=== PATIENT | female | born 1955 | race Caucasian/White ===

== ENCOUNTER → 2016-07-06 | Outpatient (CLI) | payer OTHER ==
[~2016-07-06] VITALS: Ht 167.6 cm; Wt 60.9 kg
[~2016-07-06] MED LIST: ACCUNEB SO1.25 MG/1 INH; ACETAMINOPHEN-1 EAC1; ACETAMINOPHEN-1 EAC1 PO; ACIPHEX PO; AMRIX15 MG PO; APAP W/CODEINE1 TA2 PO; APAP500 PO; AUGMENTIN 875875 MG PO; EFFEXOR75 MG PO; ESTRACE1 MG PO; FLEXERIL PO; KEFLEX500 MG PO; NORFLEX100 MG PO; PERCOCET 5-3251 EACH PO; PROMETRIUM200 MG PO; TYLENOL EXTRA500 MG PO; VALIUM5 MG PO; XANAX 0.25 MG0.25 MG PO
--- NOTE | ~2016-07-06 | HPC ---
[facility] [address] [place] [address] PAIN MANAGEMENT CONSULTATION Name: KATIE RAMIREZ Room #: REG [facility]#: [id number] Admission: 07/06/16 Attend Phys: Danny Diamond MD Discharge: Date of : 59 Report #: [id number] THIS REPORT FOR: //name// CC: Bryon Diamond DATE OF SERVICE: 07/06/2016 Followup visit for post-laminectomy radicular pain into the right leg. The patient returns to pain clinic today with pain following the L5-S1 distribution, pain as a 7-10/10 worse at night. Also, bothers her when she is driving, overactive. It radiates all the way down to the foot. She has had a previous laminectomy and she has also done very well with the previous transforaminal epidural injections. She is here today for an injection, has been some time since her last injection. She reports that she has recently been lost her job. She was on her feet a lot and so it will be helpful that she will be able to take a little bit of time for recuperation. We have discussed the importance of remaining active and exercises. She is slender and fit, very muscular for her size. She is very careful about body mechanics. MEDICATIONS: Acetaminophen, albuterol, progesterone, and estradiol. ALLERGIES: ASPIRIN. PHYSICAL EXAMINATION: BMI is 21.7. She is very strong. Blood pressure 100/69, heart rate 70. She is able to move from sitting to standing position, walks without antalgic features. She has marked right-sided straight leg raising pain which follows an L5-S1 distribution. She has across over pain from the left. IMPRESSION: Lumbar radiculopathy, post-laminectomy syndrome. RECOMMENDATIONS: L5-S1 transforaminal epidural injection. Procedure having had such good response with good duration is something we have done on several occasions. She understands risks and benefits, she is anxious to proceed. She was taken to the fluoroscopic suite, placed prone, skin prepped with ChloraPrep. Skin anesthetized over the L5-S1 neural foramen. Using triplanar fluoroscopic views, needle was advanced into the neural foramen without difficulty. I injected 1 mL of Omnipaque and demonstrating excellent epidural spread followed by 3 mL of 0.5% lidocaine mixed with 80 mg triamcinolone. She [address] [address] PAIN MANAGEMENT CONSULTATION Name: TIAN RAMIREZDAYTON Mcmullen Room #: REG KANDIS Deleon#: [id number] Admission: 07/06/16 Attend Phys: Danny Diamond MD Discharge: Date of : 59 Report #: [id number] tolerated the procedure well and was observed for 45 minutes and discharged. Followup visit planned on an as needed basis. No medications were ordered for the patient on this visit. By: 1107 20 Danny Diamond MD /nt
[2016-07-06 09:58] VITALS: BP 100/69
== END | disposition home or self-care (01) ==
LOC: PAIN 07:12
DX: M54.16 Radiculopathy, lumbar region (principal); M96.1 Postlaminectomy syndrome, not elsewhere classified

== ENCOUNTER → 2016-11-24 | Outpatient (CLI) | payer OTHER ==
[~2016-11-24] VITALS: Ht 167.6 cm; Wt 60.9 kg
--- NOTE | ~2016-11-24 | HPC ---
[facility] [address] [place] [address] PAIN MANAGEMENT CONSULTATION Name: KATIE RAMIREZ Room #: REG [facility] [id number] Admission: 11/24/16 Attend Phys: Kwasi Bunch DO Discharge: Date of : 59 Report #: [id number] THIS REPORT FOR: //name// CC: Bryon Bunch PROCEDURE: Transforaminal epidural injection under fluoroscopy. INDICATION: Symptomatic lumbar radiculopathy status post decompressive laminectomy, lumbar radiculopathy. She has had good relief with p.r.n. right L5-S1 transforaminal epidural injections. Last injection was on 07/06/2016. She returns to pain clinic today noting that injection had afforded specifically 80% relief for several months. Currently, pain is in the back, right leg to foot. She has episodic pain lancinating down the leg with chronic pain exacerbated with standing or walking. She has paresthesia and weakness. She denies bowel or bladder continence changes or saddle anesthesia. She rates the pain as 7-10 on a VAS. PHYSICAL EXAMINATION: Shows a 61-year-old female, BMI is 21.7 kilograms per meter squared, blood pressure 120/67, pulse 82, respirations 14. Rises from chair using armrest nominally antalgic gait, positive straight leg raise on the right at 30 degrees. Patellar reflexes are symmetric. Achilles reflex is diminished on the right. Right plantar flexion, lower extremity flexion, hip flexion strength is all diminished, perhaps 3/5 versus 4/5 on the left. ASSESSMENT: Symptomatic lumbar radiculopathy status post decompressive laminectomy, classic right L5 radicular pain pattern. RECOMMENDATION: Repeat L5-S1 transforaminal epidural injection (right today). Follow up with Dr. Diamond as needed. PROCEDURE: Transforaminal lumbar epidural injection under fluoroscopy. PROCEDURE NOTE: After both written and informed consent was obtained including risk of spinal cord damage, infection, increased pain and paralysis, the patient agreed to proceed. The patient was taken to the fluoroscopy suite, placed in a prone position with appropriate abdominal bolstering. After sterile prep with ChloraPrep and sterile drape, a skin wheal with 1% Xylocaine was raised. A 22 gauge 4-1/2 inch epidural Tuohy needle was inserted. From an oblique approach into the posterior-superior aspect of the right L5-S1 neural foramen with continuous pressure on the glass syringe plunger for loss of resistance. Glass syringe was filled with 2 cc of 0.1 Xylocaine. The glass loss of resistance syringe was removed. A low volume extension tubing was connected, negative aspiration was accomplished for cerebrospinal fluid or blood. 1 mL of Omnipaque was injected which showed spread both within the epidural space and laterally along the nerve root. This was followed with 80 mg of triamcinolone plus 1 mL of 1.5% preservative-free Xylocaine. Needle was partially withdrawn, 0.5 mL of [facility] [address] [place] [address] PAIN MANAGEMENT CONSULTATION Name: KATIE RAMIREZ Room #: REG [facility] Adrienne#: [id number] Admission: 11/24/16 Attend Phys: Kwasi Bunch DO Discharge: Date of : 59 Report #: [id number] Xylocaine was injected to clear the needle and the needle was removed. The area was cleansed, band-aid was applied. The patient was allowed to ambulate to the recovery room, discharged in good and stable condition. <ELECTRONICALLY SIGNED> By: Kwasi Bunch DO 11/27/16 1014 1548 1348 Kwasi Bunch DO /nt
[2016-11-24 11:08] VITALS: BP 120/67
== END | disposition home or self-care (01) ==
LOC: PAIN 07:18
DX: M54.16 Radiculopathy, lumbar region (principal); G89.29 Other chronic pain; Z98.890 Other specified postprocedural states; Z88.6 Allergy status to analgesic agent

== ENCOUNTER → 2017-07-16 | Outpatient (CLI) | payer OTHER ==
[~2017-07-16] VITALS: Ht 167.6 cm; Wt 62.9 kg
--- NOTE | ~2017-07-16 | HPC ---
[facility] [place] [address] PAIN MANAGEMENT CONSULTATION Name: KATIE RAMIREZ Room #: REG [facility].#: [id number] Admission: 07/16/17 Attend Phys: Danny Diamond MD Discharge: Date of : 59 Report #: [id number] THIS REPORT FOR: //name// CC: Bryon Diamond DATE OF SERVICE: 07/16/2017 Followup visit for post-laminectomy syndrome with radiculopathy. The patient made an appointment today for a transforaminal injection. She gets injections periodically for pain when it is severe. Her last injection was in 10/2016. She reports 6 months of pain relief nearly 100% before the pain began to return once again in May. She would like another injection. She scores her pain today as a 7. It begins in her back and radiates into her right leg along the L5 and S1 distribution. I have injected her at that level with good response. Past social history of importance is that her mother 3 weeks ago. I cared for her mother for nearly 25 years for chronic back pain as well. I had a long discussion with her mother helping transition her to hospice. I was unaware of her mother's passing and we discussed her transition. She is grieving appropriately. Her mother suffered towards the end and she is grateful that she is no longer in pain. PHYSICAL EXAMINATION: On physical exam, she is attractive 62-year-old pleasant, alert and oriented without signs of anxiety, depression or overmedication. Her blood pressure is 142/80 and heart rate 76. Her BMI is 22.4. She is able to move independently from sitting to standing position. She walks without antalgic features to her gait. She has pain with both flexion and extension of the lumbar spine and tenderness across her scar. Straight leg raising on the right reproduces pain down the posterior lateral aspect of her leg all the way to the foot consistent with radiculopathy. IMPRESSION: Low back pain with radiculopathy, post-laminectomy syndrome. PROCEDURE: L5-S1 transforaminal epidural injection under fluoroscopic guidance. DESCRIPTION OF PROCEDURE: She was taken to the fluoroscopic suite where she was placed prone, skin prepped with ChloraPrep. Skin anesthetized over L5-S1 neural foramen. A 22-gauge Tuohy epidural needle was advanced in the first attempt into the neural foramen. An excellent epidurogram was achieved with 0.5 mL of Omnipaque and then I injected 3 mL of 0.5% lidocaine mixed with 80 mg of triamcinolone. She tolerated the procedure well. Pain score was 0 at discharge [address] [address] PAIN MANAGEMENT CONSULTATION Name: KATIE RAMIREZ Room #: REG [facility].#: [id number] Admission: 07/16/17 Attend Phys: Danny Diamond MD Discharge: Date of : 59 Report #: [id number] and a followup visit planned only as needed. No medications were provided today. By: 1602 2221 Danny Diamond MD /nt
[2017-07-16 12:39] VITALS: BP 142/80
== END | disposition home or self-care (01) ==
LOC: PAIN 07:00
DX: M54.16 Radiculopathy, lumbar region (principal); M96.1 Postlaminectomy syndrome, not elsewhere classified; G89.29 Other chronic pain; Z88.8 Allergy status to other drugs, medicaments and biological substances; Z79.899 Other long term (current) drug therapy

== ENCOUNTER → 2018-01-25 | Outpatient (CLI) | payer OTHER | LOC: RAD 12:24 | DX: Z12.31 Encounter for screening mammogram for malignant neoplasm of breast (principal) ==

== ENCOUNTER → 2018-04-29 | Outpatient (CLI) | payer OTHER ==
[~2018-04-29] VITALS: Ht 167.6 cm; Wt 67.0 kg
--- NOTE | ~2018-04-29 | HPC ---
[facility] [place] [address] PAIN MANAGEMENT CONSULTATION Name: KATIE RAMIREZ Room #: REG [facility].#: [id number] Admission: 04/29/18 ������������������ Attend Phys: Danny Diamond MD Discharge: ������������������ Date of : 59 Report #: [id number] THIS REPORT FOR: //name// CC: Bryon Diamond DATE OF SERVICE: 04/29/2018 Followup visit for post laminectomy syndrome with radiculopathy. The patient returns to pain clinic today requesting an epidural injection. I provided transforaminal injections for her at infrequent intervals. She had 1 injection in 2018 and 2 injections in 2017. These have always provided good relief for the pain that radiates down into her leg. She is now having another episode, which she scores as a 7-9/10. The pain follows an L5-S1 distribution. Her previous surgery was performed years ago and she has a small incision there. Scar tissue or impingement has occurred resulting in a pain that is classic for radicular symptoms into the L5-S1 region. I reviewed her most recent MRI, which is many years ago. At this time, given her good response, I do not think it is worthwhile to repeat another x-ray. Medications for pain are taken, but she uses only Tylenol No. 3 infrequently, I have agreed to renew that for her. She does not even take it daily and using it only for severe pain. She continues to work multimedia journalist. PHYSICAL EXAMINATION: She is a pleasant, outgoing 63-year-old. Blood pressure 108/73, heart rate 85, respirations 14, BMI is 23.9. She scores her pain as a 7-9/10. She moves easily from sitting to standing position, but her gait is mildly antalgic. There is a positive straight leg raising discomfort on the right that follows the back of her leg down to the foot and is associated with some mild numbness to light touch. IMPRESSION: Chronic low back pain with radiculopathy, post laminectomy syndrome. Pain is L5 distribution on the right. PROCEDURE: L5-S1 transforaminal epidural injection under fluoroscopic guidance. DESCRIPTION OF PROCEDURE: She was taken to fluoroscopic suite for treatment, placed prone, skin prepped with ChloraPrep. Skin anesthetized over the right L5-S1 neural foramen. Using triplanar fluoroscopic views, I advanced the needle easily into the epidural space and 1 mL of Omnipaque demonstrated an excellent epidurogram as well as outlining the L5 nerve root was followed by 3 mL of 0.5% lidocaine mixed with 80 mg of triamcinolone. She tolerated the procedure well, [address] [address] PAIN MANAGEMENT CONSULTATION Name: KATIE RAMIREZ Room #: REG [facility] TabbyRoly#: [id number] Admission: 04/29/18 ������������������ Attend Phys: Danny Diamond MD Discharge: ������������������ Date of : 59 Report #: [id number] was observed for 45 minutes and discharged. Followup visit planned in the pain clinic on an as needed basis. I called in Tylenol No. 3, #30 tablets. ��������������������������������������������� ���������������������������������������� By: ��������������������������������������������� 1455 0554 Danny Diamond MD /nt
[2018-04-29 10:36] VITALS: BP 108/73
--- NOTE | 2018-04-29 10:57 | NUR ---
Pain Clinic Assessment: 1. History of Osteoarthritis: no History of Rheumatoid Arthritis: no 2. Height: 5 ft. 6 in. 167.6 cm. Weight: 147.8 lb. oz. 67.042 kg. Patient's BMI: 23.9 3. Vital Signs: BP: 108/73 Pulse: 85 Resp: 14 Temp: 02 Sat: 97 ECG Mon: 4. Pain Intensity: 7-9 ANG 5. Fall Risk: Dizziness: N Needs help standing or walking: N Fallen in the last 3 months: N Fall risk comments: 6. Patient on Blood Thinner: None 7. History of Hypertension: N 8. Opioid Therapy greater than 6 weeks: N Opiate Contract Signed: 08/18/15 9. Risk Assessment Tool Provided: 8-high risk 10. Functional Assessment Tool: 11. Recreational Drug Use: Never Drug Type: Tobacco Use: Never Smoker Tobacco Type: Amount or Packs/day: How Many Years: Alcohol Use: Yes Frequency: Quant:
== END | disposition home or self-care (01) ==
LOC: PAIN 07:08
DX: M54.16 Radiculopathy, lumbar region (principal); M96.1 Postlaminectomy syndrome, not elsewhere classified; G89.29 Other chronic pain; Z88.8 Allergy status to other drugs, medicaments and biological substances; Z79.899 Other long term (current) drug therapy; Z98.890 Other specified postprocedural states

== ENCOUNTER → 2018-12-02 | Outpatient (CLI) | payer OTHER ==
[~2018-12-02] VITALS: Ht 167.6 cm; Wt 67.1 kg
[2018-12-02 13:40] VITALS: BP 119/70
--- NOTE | 2018-12-02 13:48 | NUR ---
Pain Clinic Assessment: 1. History of Osteoarthritis: no History of Rheumatoid Arthritis: no 2. Height: 5 ft. 6 in. 167.6 cm. Weight: 148.0 lb. oz. 67.132 kg. Patient's BMI: 23.9 3. Vital Signs: BP: 119/70 Pulse: 79 Resp: 14 Temp: 02 Sat: 99 ECG Mon: 4. Pain Intensity: 7-NOW 5. Fall Risk: Dizziness: N Needs help standing or walking: N Fallen in the last 3 months: N Fall risk comments: 6. Patient on Blood Thinner: None 7. History of Hypertension: N 8. Opioid Therapy greater than 6 weeks: N Opiate Contract Signed: 08/18/15 9. Risk Assessment Tool Provided: 8-high risk 10. Functional Assessment Tool: 11. Recreational Drug Use: Never Drug Type: Tobacco Use: Never Smoker Tobacco Type: Amount or Packs/day: How Many Years: Alcohol Use: Yes Frequency: Quant:
--- NOTE | 2018-12-05 16:52 | HPC ---
[facility] [place] [address] PAIN MANAGEMENT CONSULTATION Name: KATIE RAMIREZ Room #: REG [facility].#: [id number] Admission: 12/02/18 Attend Phys: Danny Diamond MD Discharge: Date of : 59 Report #: [id number] THIS REPORT FOR: //name// CC: Bryon Diamond DATE OF SERVICE: 12/02/2018 Followup visit for low back pain with radiculopathy. The patient is here today with recurrence of her radicular symptoms. She has had a previous laminectomy, and she has responded nicely to transforaminal epidural injections. For the first time, however, her pain is on the left. It has always been on the right in the past. It does have almost exact mirror image following an L5 distribution. I have suggested that we treated as we have so successfully with the transforaminal injection using the L5-S1 level on the left rather than the right. There have been no other significant changes in her health history. She denies heart, lung, kidney or liver problems. No chronic conditions. 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 She says the client tells her much politer and nicer and she does not have to deal with drunks! PHYSICAL EXAMINATION: GENERAL: She is a pleasant and attractive 63-year-old. VITAL SIGNS: Blood pressure 119/70, heart rate 79, respirations 14. Her BMI is 23.9. She moves easily from an independent sitting position, standing, walks without antalgic features. Examination of the spine reveals mild tenderness. There is a small scar from her previous laminectomy. Straight leg raising reproduces pain on the left when the left leg is raised on the right. Positive Lasegue's sign. This is pathognomonic radiculopathy. IMPRESSION: 1. Lumbar radiculopathy, L5, on the left. 2. Post-laminectomy syndrome. PROCEDURE: Left L5-S1 transforaminal epidural injection under fluoroscopic guidance. DESCRIPTION OF PROCEDURE: She was taken to fluoroscopic suite, placed prone, skin prepped with ChloraPrep. Skin anesthetized over the L5-S1 neural foramen. Using triplanar fluoroscopic views, I advanced the needle in the neural foramen. There was no blood nor CSF aspirated. I injected one-quarter milliliters of Omnipaque to demonstrate an excellent epidurogram, was then followed by 3 mL of [facility] [address] [place] [address] PAIN MANAGEMENT CONSULTATION Name: KATIE RAMIREZ Room #: REG [facility]#: [id number] Admission: 12/02/18 Attend Phys: Danny Diamond MD Discharge: Date of : 59 Report #: [id number] 0.5% lidocaine mixed with 80 mg of triamcinolone. She tolerated the procedure well and was observed for 45 minutes and discharged. Followup visit planned as needed. <ELECTRONICALLY SIGNED> By: Danny Diamond MD 12/05/18 1652 [id number] 1306 Danny Diamond MD /nt
== END | disposition home or self-care (01) ==
LOC: PAIN 06:37
DX: M54.16 Radiculopathy, lumbar region (principal); M96.1 Postlaminectomy syndrome, not elsewhere classified; G89.29 Other chronic pain; Z88.8 Allergy status to other drugs, medicaments and biological substances; Z79.899 Other long term (current) drug therapy; Z98.890 Other specified postprocedural states

== ENCOUNTER → 2019-01-30 | Outpatient (CLI) | payer OTHER | LOC: RAD 07:58 | DX: Z12.31 Encounter for screening mammogram for malignant neoplasm of breast (principal) ==

== ENCOUNTER → 2019-02-07 | Outpatient (CLI) | payer OTHER | LOC: ULTRA 09:39 | DX: N63.22 Unspecified lump in the left breast, upper inner quadrant (principal) ==

== ENCOUNTER → 2019-06-19 | Outpatient (CLI) | payer OTHER ==
[~2019-06-19] VITALS: Ht 167.6 cm; Wt 70.6 kg
[~2019-06-19] MED LIST changes: +TYLENOL WITH CO1 TA1 PO
[2019-06-19 10:57] VITALS: BP 128/74
--- NOTE | 2019-06-19 11:13 | NUR ---
Pain Clinic Assessment: 1. History of Osteoarthritis: Not Applicable History of Rheumatoid Arthritis: Not Applicable 2. Height: 5 ft. 6 in. 167.6 cm. Weight: 155.6 lb. oz. 70.580 kg. Patient's BMI: 25.1 3. Vital Signs: BP: 128/74 Pulse: 94 Resp: 16 Temp: 02 Sat: 98 ECG Mon: 4. Pain Intensity: 9 5. Fall Risk: Dizziness: N Needs help standing or walking: N Fallen in the last 3 months: N Fall risk comments: 6. Patient on Blood Thinner: None 7. History of Hypertension: N 8. Opioid Therapy greater than 6 weeks: N Opiate Contract Signed: 08/18/15 9. Risk Assessment Tool Provided: LOW RISK 0/3 10. Functional Assessment Tool: / 11. Recreational Drug Use: Never Drug Type: Tobacco Use: Never Smoker Tobacco Type: Amount or Packs/day: How Many Years: Alcohol Use: No Frequency: Quant:
--- NOTE | 2019-06-23 08:53 | HPC ---
[facility] [address] [place] [address] PAIN MANAGEMENT CONSULTATION Name: KATIE RAMIREZ Room #: REG [facility].#: [id number] Admission: 06/19/19 Attend Phys: Megan Acosta Discharge: Date of : 59 Report #: [id number] THIS REPORT FOR: cc: Bryon Dinh MD Mertz, Jim I, MD Hocker,Megan KILGORE ~ CC: Danny Diamond MD DATE OF SERVICE: 06/19/2019 CHIEF COMPLAINT: Low back pain with radiculopathy. HISTORY OF PRESENT ILLNESS: This is a very pleasant 64-year-old female who returns to the pain clinic today for refill of her Tylenol No. 3 that she takes very sparingly for ongoing low back pain. Today, she reports that she was mowing her lawn last week and does suffer from seasonal allergies when she returned to her house. She sneezed very abruptly that caused her back to start hurting and has been bothersome ever since radiating from her low back down her left leg. She does report that the previous injection of transforaminal epidural steroid injection that Dr. Danny Diamond performed in November had been helping her at 100%. She had not been using any of her Tylenol No. 3. When she went to refill it after this episode of increased pain, she found that it has , so today she is here requesting refills of that medication. Today, her pain score is 9/10 since this flareup. She reports sitting and lying down and picking any heavy objects up has been very painful. She has been having difficulty working very part-time at [employer]. She feels heat has been beneficial and is hopeful that the Tylenol No. 3 will be helpful as well. ALLERGIES: ASPIRIN. CURRENT LIST OF MEDICATIONS: Tylenol No. 3 very p.r.n., Tylenol Extra Strength p.r.n., progesterone and Estrace. PATIENT'S PQRS: 1. She denies any rheumatoid or osteoarthritis. 2. Height is 5 feet 6 inches, weight is 155, BMI is 21. Vital signs; 128/74, pulse is 94, respirations 16, oxygen sat is 98. 3. Pain score is 9/10. 4. Denies dizziness, does not need help walking or standing, has not fallen in the last 3 months. 5. The patient is not on any blood thinner or medicine for hypertension. She is not on ongoing opioid therapy. 6. Risk assessment tool is low. Functional assessment 66/70. 7. Recreational drug use, she denies. She is not a smoker and does not drink [address] [address] PAIN MANAGEMENT CONSULTATION Name: KATIE RAMIREZ Room #: REG [facility]#: [id number] Admission: 06/19/19 Attend Phys: Megan Acosta Discharge: Date of : 59 Report #: [id number] alcohol. According to the prescription monitoring system, the patient is filling very sparingly, her Tylenol No. 3. The last refill was 02/07/2019. The patient reports that she has some Valium that she had taken in the past, but she is no longer taking that medication. Last fill in early April. PHYSICAL EXAMINATION: GENERAL: This is a very pleasant 64-year-old female who appears her stated age, placing her current pain score 9/10. HEENT: Normocephalic, atraumatic. Extraocular eye muscles are intact. Mucous membranes are moist. MUSCULOSKELETAL: She moves very guarded from sitting to standing position. She is walking with an antalgic gait, standing slightly bent over. Examination of her spine revealed minor tenderness on the left side that radiates into her left thigh with numbness and tingling following the L5-S1 dermatomal distribution. Lower extremity strength judged to be 5/5. She does have positive straight leg raising on the left as well as the right. IMPRESSION: 1. Lumbar radiculopathy L5 on the left. 2. Post-laminectomy syndrome. PLAN: 1. We discussed treatment options with the patient today. I believe that the patient may find benefit in a transforaminal epidural steroid injection at the L5-S1 level on the left. Dr. Danny Diamond performed with us last in November where the patient had greater than 6 months relief at 100% until her recent mowing and sneezing episode. The patient states this increased pain has been ongoing for 1 week, has been using heat and ice. I encouraged her to call for an appointment if it does not subside with a muscle relaxer and opioid medications that we are prescribing to schedule an appointment for an epidural. The patient verbalizes understanding. 2. We will refill her Tylenol No. 3, #60 tablets with 2 additional refills. The patient's previous medicine had , only filling a total of 60 pills in greater than 6 months. These will be sent electronically by Dr. Danny Diamond to her pharmacy. 3. I will offer her 30 pills of Flexeril 10 mg. The patient to take this at bedtime to see if that is beneficial in reducing some of the some of the muscle spasm she is feeling in her lower back and aid in her sleep. 4. The patient instructed to call Sunday if her symptoms have not subsided. The patient is seen today in collaboration with Dr. Danny Diamond. <ELECTRONICALLY SIGNED> By: Megan Acosta 06/23/19 0853 [id number] 1238 Megan Acosta /nt
== END ==
LOC: PAIN 09:51
DX: M54.16 Radiculopathy, lumbar region (principal); M96.1 Postlaminectomy syndrome, not elsewhere classified; Z88.8 Allergy status to other drugs, medicaments and biological substances; Z79.899 Other long term (current) drug therapy

== ENCOUNTER → 2019-07-03 | Outpatient (CLI) | payer OTHER ==
[~2019-07-03] VITALS: Ht 167.6 cm; Wt 69.9 kg
--- NOTE | ~2019-07-03 | HPC ---
[facility] [place] [address] [place] [address] PAIN MANAGEMENT CONSULTATION Name: KATIE RAMIREZ Room #: [facility].#: [id number] Admission: 07/03/19 Attend Phys: Danny Diamond MD Discharge: Date of : 59 Report #: [id number] THIS REPORT FOR: cc: Niru Dinh MD Mertz, Jim I, MD Morgan, Richard L. MD ~ CC: NIRU Diamond DATE OF SERVICE: 07/03/2019 Followup visit for lumbar radiculopathy, chronic. Left L5-S1 distribution. Post-laminectomy syndrome with failed back. The patient was here for medication review on 06/19/2019. I saw her in conjunction with MAGUI Baldwin. At that time, we discussed repeating lumbar epidural injection. She had 6 months of excellent pain relief that she reported it is 100% until sneezing after some exercise. I agreed that an epidural injection would be reasonable given her excellent response with good duration. All medications were reviewed and reconciled, there have been no changes. She takes Tylenol No. 3 is her only opioid, uses gabapentin for neuropathic pain. She has diazepam on her medication list as well. She uses it sparingly and p.r.n. We did discuss briefly the opioid, benzodiazepine interaction, which has not been an issue at these low doses. PHYSICAL EXAMINATION: Repeat review shows again guarded movements. Pain across the lumbosacral segment. Positive straight leg raising on the left involving the posterolateral thigh and calf. Denies numbness or weakness. IMPRESSION: Lumbar radiculopathy, post-laminectomy syndrome, failed back. PROCEDURE: Right L5-S1 transforaminal epidural injection. DESCRIPTION OF PROCEDURE: She was taken to fluoroscopic suite for treatment, placed prone, skin prepped with ChloraPrep. Skin anesthetized over the L5-S1 neural foramen. Using triplanar fluoroscopic views, I advanced the needle into the epidural space. There was no blood or CSF aspirated. A 1 mL of Omnipaque injected. Good spread of dye observed. It was followed by 3 mL of 0.5% lidocaine mixed with 60 mg of triamcinolone. She tolerated the procedure well and was observed for 45 minutes and discharged. [address] [address] PAIN MANAGEMENT CONSULTATION Name: KATIE RAMIREZ Benedict Room #: [facility].#: [id number] Admission: 07/03/19 Attend Phys: Danny Diamond MD Discharge: Date of : 59 Report #: [id number] Followup visit planned in the pain clinic on an as-needed basis. No medications were ordered during today's visit. By: [id number] Danny Diamond MD /nt
[2019-07-03 10:59] VITALS: BP 135/76
--- NOTE | 2019-07-03 11:03 | NUR ---
Pain Clinic Assessment: 1. History of Osteoarthritis: Not Applicable History of Rheumatoid Arthritis: Not Applicable 2. Height: 5 ft. 6 in. 167.6 cm. Weight: 154.0 lb. oz. 69.854 kg. Patient's BMI: 24.9 3. Vital Signs: BP: 135/76 Pulse: 72 Resp: 16 Temp: 02 Sat: 100 ECG Mon: 4. Pain Intensity: 8 5. Fall Risk: Dizziness: N Needs help standing or walking: N Fallen in the last 3 months: N Fall risk comments: 6. Patient on Blood Thinner: None 7. History of Hypertension: N 8. Opioid Therapy greater than 6 weeks: N Opiate Contract Signed: 08/18/15 9. Risk Assessment Tool Provided: LOW RISK 0 10. Functional Assessment Tool: / 11. Recreational Drug Use: Never Drug Type: Tobacco Use: Never Smoker Tobacco Type: Amount or Packs/day: How Many Years: Alcohol Use: No Frequency: Quant:
== END | disposition home or self-care (01) ==
LOC: PAIN 06:53
DX: M54.16 Radiculopathy, lumbar region (principal); G89.29 Other chronic pain; M96.1 Postlaminectomy syndrome, not elsewhere classified; Z98.890 Other specified postprocedural states; Z79.899 Other long term (current) drug therapy; Z88.8 Allergy status to other drugs, medicaments and biological substances

== ENCOUNTER → 2019-08-11 | Outpatient (CLI) | payer OTHER | LOC: ULTRA 12:19 → BC 12:21 | PROVIDERS: ATTEND Obstetrics & Gynecology | DX: N60.02 Solitary cyst of left breast (principal) ==

== ENCOUNTER → 2019-10-13 | Outpatient (CLI) | payer OTHER ==
[~2019-10-13] VITALS: Ht 167.6 cm; Wt 67.6 kg
--- NOTE | ~2019-10-13 | HPC ---
[facility] [place] [address] [place] [address] PAIN MANAGEMENT CONSULTATION Name: KATIE RAMIREZ Room #: REG [facility].#: [id number] Admission: 10/13/19 Attend Phys: Danny Diamond MD Discharge: Date of : 59 Report #: [id number] THIS REPORT FOR: cc: Fatoumata Cabrera MD, Kristin E. MD Morgan, Richard L. MD ~ CC: Eric Diamond DATE OF SERVICE: 10/13/2019 CHIEF COMPLAINT: Numbness, left thigh; weakness in hip flexion and pain in the posterior right thigh. HISTORY OF PRESENT ILLNESS: The patient is a longstanding patient of [facility] who has received intermittent epidural injections using a transforaminal approach for left lumbar radicular symptoms. She had lumbar surgery in 2009 and shortly thereafter had a herniated disk at L3-L4. The symptoms largely abated over the course of a number of years and with intermittent epidural injection, she has been able to avoid additional surgery. Her last injection was in June. Everything went fine, but 2 weeks after that injection, she was doing some activities around the house and she started to notice that she was having numbness in her left thigh. This then progressed to some weakness. She used to be able to walk easily 4 miles, but now finds that at the end of 1 mile, she has weakness in her left leg and also has pain. Occasionally, she will have some fleeting pain in the area of numbness across the top of the thigh. This corresponds to the L3 dermatome and may be related to the distant herniation at L3-L4. She does not routinely take medication. She has remained thin and fit and active. MEDICATIONS: Estradiol, progesterone, albuterol, Tylenol, Flexeril and very, very occasionally Tylenol No. 3 when the pain is very severe. ALLERGIES: ASPIRIN. PHYSICAL EXAMINATION: GENERAL: Attractive 64-year-old female, very slender and fit-appearing. VITAL SIGNS: Blood pressure 135/76, heart rate 72, respirations 16. BMI is 24.9. MUSCULOSKELETAL: She can move independently from sitting to standing position and she can ambulate with a normal gait, but she has weakness in her left hip flexion as well as in her right and straight leg raising also reproduces pain [address] [address] PAIN MANAGEMENT CONSULTATION Name: KATIE RAMIREZ Room #: [facility]#: [id number] Admission: 10/13/19 Attend Phys: Danny Diamond MD Discharge: Date of : 59 Report #: [id number] and tightness in the back of both legs. Sensation in the lower extremities below the knee area is intact. Deep tendon reflexes are diminished bilaterally at knees and ankles. IMPRESSION: Lumbar radiculopathy, post-laminectomy. Distant herniated disk L3-L4, which was treated conservatively, now bothering her. RECOMMENDATION: An MRI is ordered and I am going to have her come back with the results of that. We will determine if an injection might be of benefit. Hopefully, surgery will not be indicated. By: [id number] Danny Diamond MD /nt
[2019-10-13 14:06] VITALS: BP 120/74
--- NOTE | 2019-10-13 14:20 | NUR ---
Pain Clinic Assessment: 1. History of Osteoarthritis: DENIES History of Rheumatoid Arthritis: DENIES 2. Height: 5 ft. 6 in. 167.6 cm. Weight: 149.0 lb. oz. 67.586 kg. Patient's BMI: 24.1 3. Vital Signs: BP: 120/74 Pulse: 75 Resp: 14 Temp: 02 Sat: 100 ECG Mon: 4. Pain Intensity: 10 but only for 5 sec 5. Fall Risk: Dizziness: N Needs help standing or walking: N Fallen in the last 3 months: N Fall risk comments: 6. Patient on Blood Thinner: None 7. History of Hypertension: N 8. Opioid Therapy greater than 6 weeks: N Opiate Contract Signed: 08/18/15 9. Risk Assessment Tool Provided: LOW RISK 0 10. Functional Assessment Tool: 11. Recreational Drug Use: Never Drug Type: Tobacco Use: Never Smoker Tobacco Type: Amount or Packs/day: How Many Years: Alcohol Use: Yes Frequency: Monthly Quant:
== END ==
LOC: PAIN 07:15
PROVIDERS: ATTEND Anesthesiology Pain Medicine
DX: M54.16 Radiculopathy, lumbar region (principal); R53.1 Weakness; R20.0 Anesthesia of skin; Z79.899 Other long term (current) drug therapy

== ENCOUNTER → 2019-10-20 | Outpatient (CLI) | payer OTHER | LOC: MRI 09:44 | PROVIDERS: ATTEND Anesthesiology Pain Medicine | DX: M51.17 Intervertebral disc disorders with radiculopathy, lumbosacral region (principal); M48.07 Spinal stenosis, lumbosacral region; M47.25 Other spondylosis with radiculopathy, thoracolumbar region; M48.05 Spinal stenosis, thoracolumbar region; M51.27 Other intervertebral disc displacement, lumbosacral region ==

== ENCOUNTER → 2019-10-30 | Outpatient (CLI) | payer OTHER ==
[~2019-10-30] VITALS: Ht 167.6 cm; Wt 67.5 kg
--- NOTE | ~2019-10-30 | HPC ---
[facility] [place] [address] [place] [address] PAIN MANAGEMENT CONSULTATION Name: KATIE RAMIREZ Room #: REG [facility].#: [id number] Admission: 10/30/19 Attend Phys: Danny Diamond MD Discharge: Date of : 59 Report #: [id number] THIS REPORT FOR: cc: Fatoumata Cabrera MD, Kristin E. MD Morgan,Danny Day MD ~ CC: Fatoumata Diamond DATE OF SERVICE: 10/30/2019 Followup visit for lumbar radiculopathy. The patient returns to pain clinic today after a 20-minute phone conversation 3 days ago reviewing her MRI scan dated 10/20/2019. In that discussion, we reviewed the findings. There are several levels of concern, but her symptoms seem to be most significant and correlate at L2-L3. At that level, there is a broad-based central and left paracentral disk protrusion in combination with facet changes that results in posterior displacement of the descending L3 nerve root. This also create central spinal stenosis. That is her most troublesome complaint. She complains of left-sided L3 weakness, pain and numbness. At times, the pain is shooting. This is her most restrictive discomfort. She also occasionally, however, has pain associated with the L5-S1 distribution on the right and drags her leg. It should be noted that she has had surgery previously and it does remain still a focal central disk protrusion at L5-S1, narrowing the canal to 7 mm at that level. There is, however, no significant neural foraminal stenosis. MEDICATIONS: Unchanged, reviewed and reconciled from the electronic medical record. She has Tylenol with Codeine for periodic pain relief and uses Extra Strength Tylenol. Estradiol, progesterone and albuterol are her other medicines. ALLERGIES: ASPIRIN. PHYSICAL EXAMINATION: Pleasant female, BMI 24, blood pressure 120/74, heart rate 75, respirations 14, O2 sat 100. She walks with mild antalgic features. Tenderness across the lumbosacral segment, pain with forward flexion and extension. Straight leg raising positive on the left, reproducing symptoms into the L3 distribution. Also has some mild symptoms as well on the right following more of an L5-S1 distribution. IMPRESSION: Lumbar radiculopathy. I think she has 2 levels of concern, particularly, L2-L3 on the left and L5-S1 on the right. I would like to do an epidural injection today at L2-L3 using a left paramedian approach. This may also provide some spread to the right. If she continues to have symptoms on the [address] [address] PAIN MANAGEMENT CONSULTATION Name: KATIE RAMIREZ Room #: REG [facility]#: [id number] Admission: 10/30/19 Attend Phys: Danny Diamond MD Discharge: Date of : 59 Report #: [id number] right, we would consider perhaps a right L4-5 transforaminal epidural injection L5-S1 in the future. Physical therapy will be continued. DESCRIPTION OF PROCEDURE: After informed consent, she was taken to fluoroscopic suite, placed prone, skin prepped with ChloraPrep. Skin anesthetized over the L2-L3 interspace. A 20-gauge Tuohy epidural needle advanced first attempt into the epidural space using loss of resistance technique. There was no blood or CSF aspirated. A 1 mL of Omnipaque was injected. Good spread of dye was observed into the epidural space, was followed by 3 mL of 0.5% lidocaine mixed with 80 mg of triamcinolone. She tolerated the procedure well and was observed for 45 minutes and discharged. Followup visit planned as needed. By: [id number] Danny Diamond MD /nt
[2019-10-30 08:25] VITALS: BP 114/70
--- NOTE | 2019-10-30 08:34 | NUR ---
Pain Clinic Assessment: 1. History of Osteoarthritis: BACK NECK History of Rheumatoid Arthritis: Not Applicable 2. Height: 5 ft. 6 in. 167.6 cm. Weight: 148.8 lb. oz. 67.495 kg. Patient's BMI: 24.0 3. Vital Signs: BP: 114/70 Pulse: 76 Resp: 16 Temp: 02 Sat: 100 ECG Mon: 4. Pain Intensity: 5 5. Fall Risk: Dizziness: N Needs help standing or walking: N Fallen in the last 3 months: N Fall risk comments: 6. Patient on Blood Thinner: None 7. History of Hypertension: N 8. Opioid Therapy greater than 6 weeks: N Opiate Contract Signed: 08/18/15 9. Risk Assessment Tool Provided: LOW RISK 0 10. Functional Assessment Tool: 11. Recreational Drug Use: Never Drug Type: Tobacco Use: Never Smoker Tobacco Type: Amount or Packs/day: How Many Years: Alcohol Use: Yes Frequency: Weekly Quant: 1
== END ==
LOC: PAIN 06:51
PROVIDERS: ATTEND Anesthesiology Pain Medicine
DX: M54.16 Radiculopathy, lumbar region (principal); M19.90 Unspecified osteoarthritis, unspecified site; Z79.899 Other long term (current) drug therapy; Z88.8 Allergy status to other drugs, medicaments and biological substances

== ENCOUNTER → 2020-05-24 | Outpatient (CLI) | payer OTHER ==
[~2020-05-24] VITALS: Ht 167.6 cm; Wt 67.9 kg
[2020-05-24 13:58] VITALS: BP 129/79
--- NOTE | 2020-05-24 14:10 | NUR ---
Pain Clinic Assessment: 1. History of Osteoarthritis: BACK NECK History of Rheumatoid Arthritis: Not Applicable 2. Height: 5 ft. 6 in. 167.6 cm. Weight: 149.6 lb. oz. 67.858 kg. Patient's BMI: 24.2 3. Vital Signs: BP: 129/79 Pulse: 90 Resp: 14 Temp: 02 Sat: 97 ECG Mon: 4. Pain Intensity: 7 5. Fall Risk: Dizziness: N Needs help standing or walking: N Fallen in the last 3 months: N Fall risk comments: 6. Patient on Blood Thinner: None 7. History of Hypertension: N 8. Opioid Therapy greater than 6 weeks: N Opiate Contract Signed: 08/18/15 9. Risk Assessment Tool Provided: LOW RISK 0 10. Functional Assessment Tool: 11. Recreational Drug Use: Never Drug Type: Tobacco Use: Never Smoker Tobacco Type: Amount or Packs/day: How Many Years: Alcohol Use: Yes Frequency: Quant:
== END | disposition home or self-care (01) ==
LOC: PAIN 07:01
PROVIDERS: ATTEND Anesthesiology Pain Medicine
DX: M54.16 Radiculopathy, lumbar region (principal); M48.061 Spinal stenosis, lumbar region without neurogenic claudication; G89.29 Other chronic pain; Z98.890 Other specified postprocedural states; Z79.899 Other long term (current) drug therapy; Z88.8 Allergy status to other drugs, medicaments and biological substances

== ENCOUNTER → 2020-12-09 | Outpatient (CLI) | payer OTHER ==
[~2020-12-09] VITALS: Ht 167.6 cm; Wt 68.7 kg
[2020-12-09 10:11] VITALS: BP 133/79
--- NOTE | 2020-12-09 10:20 | NUR ---
Pain Clinic Assessment: 1. History of Osteoarthritis: BACK NECK History of Rheumatoid Arthritis: Not Applicable 2. Height: 5 ft. 6 in. 167.6 cm. Weight: 151.4 lb. oz. 68.675 kg. Patient's BMI: 24.4 3. Vital Signs: BP: 133/79 Pulse: 87 Resp: 14 Temp: 02 Sat: 100 ECG Mon: 4. Pain Intensity: 7 5. Fall Risk: Dizziness: N Needs help standing or walking: N Fallen in the last 3 months: N Fall risk comments: 6. Patient on Blood Thinner: None 7. History of Hypertension: N 8. Opioid Therapy greater than 6 weeks: N Opiate Contract Signed: 08/18/15 9. Risk Assessment Tool Provided: LOW RISK 0 10. Functional Assessment Tool: 11. Recreational Drug Use: Never Drug Type: Tobacco Use: Never Smoker Tobacco Type: Amount or Packs/day: How Many Years: Alcohol Use: No Frequency: Quant:
== END ==
LOC: PAIN 06:51
PROVIDERS: ATTEND Anesthesiology Pain Medicine
DX: M54.16 Radiculopathy, lumbar region (principal); M48.07 Spinal stenosis, lumbosacral region; Z88.6 Allergy status to analgesic agent; Z88.8 Allergy status to other drugs, medicaments and biological substances; Z79.899 Other long term (current) drug therapy

== ENCOUNTER → 2020-12-16 | Outpatient (CLI) | payer OTHER ==
[~2020-12-16] VITALS: Ht 167.6 cm; Wt 67.8 kg
[2020-12-16 10:18] VITALS: BP 107/69
--- NOTE | 2020-12-16 10:27 | NUR ---
Pain Clinic Assessment: 1. History of Osteoarthritis: BACK NECK History of Rheumatoid Arthritis: Not Applicable 2. Height: 5 ft. 6 in. 167.6 cm. Weight: 149.4 lb. oz. 67.767 kg. Patient's BMI: 24.1 3. Vital Signs: BP: 107/69 Pulse: 78 Resp: 16 Temp: 02 Sat: 100 ECG Mon: 4. Pain Intensity: 9 5. Fall Risk: Dizziness: N Needs help standing or walking: N Fallen in the last 3 months: N Fall risk comments: 6. Patient on Blood Thinner: None 7. History of Hypertension: N 8. Opioid Therapy greater than 6 weeks: N Opiate Contract Signed: 08/18/15 9. Risk Assessment Tool Provided: LOW RISK 0 10. Functional Assessment Tool: / 11. Recreational Drug Use: Never Drug Type: Tobacco Use: Never Smoker Tobacco Type: Amount or Packs/day: How Many Years: Alcohol Use: No Frequency: Quant:
== END ==
LOC: PAIN 10:00
PROVIDERS: ATTEND Anesthesiology Pain Medicine
DX: M54.16 Radiculopathy, lumbar region (principal); M06.9 Rheumatoid arthritis, unspecified; Z79.899 Other long term (current) drug therapy